=== PATIENT | female | born 1945 | race Caucasian/White ===

== ENCOUNTER 2018-03-25 12:51 | Emergency (ER) | payer MEDICARE, OTHER ==
[2018-03-25] MEDS ORDERED: SODIUM CHLORIDE 0.9% FLUSH 10 ML SOL IV PRN (13:05)
[2018-03-25 13:16] LABS: BASOPHILS % (AUTO) 0 % (0-3); EOSINOPHILS % (AUTO) 1 % (0-9); HEMATOCRIT 42 % (35-47); HEMOGLOBIN 14.3 gm/dl (12.0-15.5); MEAN CORPUSCULAR HEMOGLOBIN 30.8 pg (27.0-32.0); MEAN CORPUSCULAR HGB CONC 34.2 gm/dl (32.0-36.0); MEAN CORPUSCULAR VOLUME 90 fL (81-99); MONOCYTES % (AUTO) 4.2 % (0-12); NEUTROPHILS % (AUTO) 75.5 % (37-80)
[2018-03-25] MEDS ORDERED: ATROPINE 0.1 MG/ML SOL ONE (13:27)
[2018-03-25] MEDS ORDERED: ETOMIDATE 2 MG/ML SOL IV ONE ×4 (13:27→13:53)
[2018-03-25] MEDS ORDERED: SUCCINYLCHOLINE CHLORIDE 20 MG/ML SOL IV ONE ×4 (13:27→13:53)
[2018-03-25] MEDS ORDERED: LIDOCAINE HCL 2% (100 MG) CARP ONE (13:27)
[2018-03-25 13:29] LABS: INR 2.81 (0.86-1.12)
[2018-03-25 13:35] LABS: CALCIUM 8.7 mg/dl (8.5-10.1); CARBON DIOXIDE 28.8 mEq/L (21-32); CREATININE 1.17 mg/dl (0.60-1.00); POTASSIUM 4.1 mMol/L (3.5-5.1)
[2018-03-25 13:38] LABS: TROP I 0.079 ng/ml (0.000-0.056)
[2018-03-25] MEDS ORDERED: EPINEPHRINE 1:1000 AMP 1 MG/ML SOL IV PRN (13:40)
[2018-03-25] MEDS: EPINEPHRINE HCL 0.1 MG/ML SOL IV PRN ×4 (13:40→14:41)
[2018-03-25] MEDS ORDERED: ROCURONIUM BROMIDE 10 MG/ML SOL IV ONE ×2 (13:46→13:53)
[2018-03-25] MEDS ORDERED: KETAMINE HYDROCHLORIDE 50 MG/ML SOL IV ONE (13:58)
[2018-03-25 14:02] LABS: ABG PH 6.9 (7.35-7.45)
[2018-03-25] MEDS ORDERED: EPINEPHRINE 1:1000 AMP 1 MG/ML SOL ONE ×2 (14:07→15:00)
[2018-03-25] MEDS ORDERED: NOREPINEPHRINE BITARTRATE 4 MG/4 ML SOL IV ONE (14:45)
[2018-03-25] MEDS ORDERED: NOREPINEPHRINE 4 MG/4 ML 4 MG in DEXTROSE 500 ML 500 ML IV SCH (14:48)
[2018-03-25 21:15] VITALS: RESP 18; TEMP 97.1
[2018-03-25] MEDS ORDERED: SODIUM BICARBONATE 8.4%(ADULT) 1 MEQ/ML SOL IV ONE (21:50)
[2018-03-25] MEDS ORDERED: SODIUM CHLORIDE 0.9% 1000ML 1,000 ML IV SCH (22:00)
[2018-03-25 22:24] VITALS: BP 103/76; PULSE 96; O2SAT 85
== END 2018-03-25 15:04 | disposition expired | DRG 298 ==
LOC: ED 12:51
DX: I46.9 Cardiac arrest, cause unspecified (principal); R29.707 NIHSS score 7; Z79.01 Long term (current) use of anticoagulants; R40.2362 Coma scale, best motor response, obeys commands, at arrival to emergency department; R40.2142 Coma scale, eyes open, spontaneous, at arrival to emergency department; R40.2242 Coma scale, best verbal response, confused conversation, at arrival to emergency department
CPT/HCPCS: 36600; 70450; 71045; 80048; 82803; 84484; 85025; 85610; 85730; 87040; 99291; J0330; J0461; J2001; A9270-GY; J3490